=== PATIENT | female | born 1945 | race Caucasian/White ===

== ENCOUNTER 2017-07-29 17:54 | Emergency (ER) | payer MEDICARE, BC ==
[2017-07-29 17:54] VITALS: BP 108/45
--- NOTE | 2017-07-29 17:56 | ED.ADGEN ---
Adult General Chief Complaint Chief Complaint .." I fell... and hurt my right wrist..." HPI HPI Patient is a 72 year old female who presents with above hx and complaints. Pt. had a slip and fall. Pt caught her self with out stretched arm. FOOSH type injury. Localized pain in wrist and base scaphoid. Pt. denies other injuries. Pt. Rt. hand dominate. Pt. follows with Dr. Cinthia Brown Review of Systems Review of Systems Constitutional: Denies fever or chills [] Eyes: Denies change in visual acuity, redness, or eye pain [] HENT: Denies nasal congestion or sore throat [] Respiratory: Denies cough or shortness of breath [] Cardiovascular: No additional information not addressed in HPI [] GI: Denies abdominal pain, nausea, vomiting, bloody stools or diarrhea [] : Denies dysuria or hematuria [] Musculoskeletal: Denies back pain or joint pain []Complaints of Rt wrist pain Integument: Denies rash or skin lesions [] Neurologic: Denies headache, focal weakness or sensory changes [] Endocrine: Denies polyuria or polydipsia [] Family History Family History Non contributory Current Medications Current Medications Current Medications Medications (Trade) Dose Ordered Sig/Norman Start Time Stop Time Status Last Admin Dose Admin Oxycodone/ Acetaminophen (Percocet 10/325) 1 tab 1X ONCE 07/29/17 18:30 07/29/17 18:31 DC 07/29/17 18:29 1 TAB See Nursing for home meds Allergies Allergies Allergies Coded Allergies Type Severity Reaction Last Updated Verified No Known Drug Allergies 07/29/17 No Physical Exam Physical Exam Constitutional: Well developed, well nourished,mid to moderated distress, non- toxic appearance. [] HENT: Normocephalic, atraumatic, bilateral external ears normal, oropharynx moist, no oral exudates, nose normal. [] Eyes: PERRLA, EOMI, conjunctiva normal, no discharge. [] Neck: Normal range of motion, no tenderness, supple, no stridor. [] Cardiovascular:Heart rate regular rhythm, no murmur [] Lungs & Thorax: Bilateral breath sounds clear to auscultation [] Abdomen: Bowel sounds normal, soft, no tenderness, no masses, no pulsatile masses. [] Skin: Warm, dry, no erythema, no rash. [] Back: No tenderness, no CVA tenderness. [] Extremities: No tenderness, no cyanosis, no clubbing, ROM intact, no edema. Except finding in Rt. wrist per HPI Neurologic: Alert and oriented X 3, normal motor function, normal sensory function, no focal deficits noted. [] Psychologic: Affect normal, judgement normal, mood normal. [] Current Patient Data Vital Signs Vital Signs Date Time Temp Pulse Resp B/P (MAP) Pulse Ox O2 Delivery O2 Flow Rate FiO2 07/29/17 17:54 97.9 64 18 99 Room Air EKG EKG [] Radiology/Procedures Radiology/Procedures My interpretation of Xray Rt wrist hand, DJD, questionable area scaphoid- chip [] Course & Med Decision Making Course & Med Decision Making Pertinent Labs and Imaging studies reviewed. (See chart for details) Distal neurovascular intact post splint. Take Tylenol and ibuprofen for pain. Ice, elevation, rest and wear splint. Consider repeat x-ray in 2 weeks evaluate for callus formation. May advanced to velcro splint if no finding so scaphoid callus or fx. Follow up with primary. [] Final Impression Final Impression 1. Right Wrist[]-sprain 2. Questionable Scaphoid injury- fx. 3. DJD Problems: Dragon Disclaimer Dragon Disclaimer This electronic medical record was generated, in whole or in part, using a voice recognition dictation system. VIVIENNE WILLAMS MD Jul 29, 2017 17:56
[2017-07-29] MEDS ORDERED: oxyCODONE/APAP 10/325 1 TAB TABLET PO ONE (18:30)
--- NOTE | 2017-07-30 09:08 | RAD ---
Right hand, 3 views, 07/29/2017: History: Fall, injury There is patchy bony demineralization. No fracture or dislocation is identified. There are minimal scattered degenerative changes. IMPRESSION: No acute bony abnormality is detected. Right wrist, 3 views, 07/29/2017: No fracture or dislocation is identified. There is mild soft tissue swelling.
== END 2017-07-29 19:25 | disposition home or self-care (01) ==
LOC: ER 17:54
DX: S63.501A Unspecified sprain of right wrist, initial encounter (principal); M19.031 Primary osteoarthritis, right wrist; W01.0XXA Fall on same level from slipping, tripping and stumbling without subsequent striking against object, initial encounter; Y93.89 Activity, other specified; Y99.8 Other external cause status; Y92.89 Other specified places as the place of occurrence of the external cause
CPT/HCPCS: 29125; 73110; 73130; 99284-25

== ENCOUNTER → 2020-01-15 | Outpatient (CLI) | payer MEDICARE, BC ==
--- NOTE | 2020-01-15 16:23 | RAD ---
Indication: Decreased estrogen level. Ovarian failure. Postmenopausal screening for osteoporosis. COMPARISON: August 31, 2011 performed at [facility]. Bone Density: -BMD: (g/cm2) - AP Spine Total (L1-L4).......... 0.885. - Total right Hip................. 0.761. Neck: 0.685 T-Score: - AP Spine Total (L1-L4)......... -2.5. - Total right Hip................. -1.6. Neck: -2.0 Z-Score: - AP Spine Total (L1-L4).......... -0.6. - Total right Hip................. 0.2. World Health Organization criteria for BMD interpretation classify patients as Normal (T-score at or above -1.0), Osteopenic (T-score between -1.0 and -2.5), or Osteoporotic (T-score at or below -2.5). Impression: 1. AP Spine Total L1-L4--- osteoporosis. No change from previous. 2. Total right Hip--- osteopenia. There has been a decrease in the BMD of approximately 4% since the previous study. Neck: Osteopenia. Electronically signed by: Barrett Oliver MD (01/15/2020 4:20 PM) [facility] [place]
== END | disposition home or self-care (01) ==
LOC: DXRAD 11:36
PROVIDERS: ATTEND Internal Medicine
DX: M81.0 Age-related osteoporosis without current pathological fracture (principal); M85.88 Other specified disorders of bone density and structure, other site; E28.39 Other primary ovarian failure; Z78.0 Asymptomatic menopausal state
CPT/HCPCS: 77080

== ENCOUNTER 2020-12-23 12:31 | Emergency (ER) | payer MEDICARE, BC ==
[~2020-12-23] VITALS: Ht 157.5 cm; Wt 63.0 kg
[2020-12-23] MEDS ORDERED: HYDROcodone/APAP 5/325MG 1 TAB TABLET PO ONE (13:15)
--- NOTE | 2020-12-23 13:27 | EKG ---
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
--- NOTE | 2020-12-23 13:33 | PHYS DOC ---
Past History Past Medical History: High Cholesterol, Hypertension, Migraines Past Surgical History: Other Additional Past Surgical Histo: breast biopsy Alcohol Use: None Drug Use: None General Adult EDM: Chief Complaint: MECHANICAL FALL HPI: HPI: Patient is a 75-year-old female who presents with shortness of breath and right- sided flank, hip, pelvis, lower abdominal pain. Patient states that last night she was in her kitchen, she turned around and slipped on the floor and fell onto a flower pot. She states that she broke with a pop when she fell on it. Dahiana ent has bruising to her right flank and states this morning she started having pain in between her shoulder blades. She states that she was exposed to Covid positive person on , patient does report a cough. Pain is worse with coughing. Patient reports taking hydrocodone this morning at 10 AM with little relief of pain. Patient is able to ambulate on her own. Patient denies fever. Review of Systems: Review of Systems: Constitutional: Denies fever or chills Eyes: Denies change in visual acuity HENT: Denies nasal congestion or sore throat Respiratory: Reports cough and shortness of breath Cardiovascular: Denies chest pain or edema GI: Reports lower abdominal pain. Denies nausea, vomiting, bloody stools or d iarrhea : Denies dysuria Musculoskeletal: Reports right-sided flank pain, right hip pain Integument: Reports bruising to right flank Neurologic: Denies headache, focal weakness or sensory changes Endocrine: Denies polyuria or polydipsia Lymphatic: Denies swollen glands Psychiatric: Denies depression or anxiety Current Medications: Current Meds: Current Medications Medications (Trade) Dose Ordered Sig/Norman Start Time Stop Time Status Last Admin Dose Admin Acetaminophen/ Hydrocodone Bitart (Lortab 5/325) 1 tab 1X ONCE 12/23/20 13:15 12/23/20 13:16 UNV Allergies: Allergies: Allergies Coded Allergies Type Severity Reaction Last Updated Verified No Known Drug Allergies 12/23/20 No Physical Exam: PE: Constitutional: Well developed, well nourished, no acute distress, non-toxic appearance. [] HENT: Normocephalic, atraumatic, bilateral external ears normal, oropharynx moist, no oral exudates, nose normal. [] Eyes: PERRLA, EOMI, conjunctiva normal, no discharge. [] Neck: Normal range of motion, no tenderness, supple, no stridor. [] Cardiovascular:Heart rate regular rhythm, no murmur [] Lungs & Thorax: Bilateral breath sounds clear to auscultation [] Abdomen: Bowel sounds normal, soft, no tenderness, no masses, no pulsatile masses. [] Skin: Warm, dry, bruising to right flank Back: Right flank tenderness and bruising Extremities: No tenderness, no cyanosis, no clubbing, ROM intact, no edema. [] Neurologic: Alert and oriented X 3, normal motor function, normal sensory function, no focal deficits noted. [] Psychologic: Affect normal, judgement normal, mood normal. [] Current Patient Data: Vital Signs: Vital Signs Date Time Temp Pulse Resp B/P (MAP) Pulse Ox O2 Delivery O2 Flow Rate FiO2 12/23/20 12:45 97.9 64 18 145/68 (93) 64 EKG: EKG: [] Radiology/Procedures: Radiology/Procedures: []CT CHEST_ABDOMEN_ AND PELVIS WITHOUT CONTRAST INDICATION: FALL RIGHT RIB, RIGHT HIP AND ABDOMEN PAIN COMPARISON: None. TECHNIQUE: Multiple contiguous axial images were obtained throughout the chest, abdomen, and pelvis without the use of IV contrast. Axial images were reformatted into coronal and sagittal planes. One or more of the following dose reduction techniques were utilized: Automated exposure control (AEC), Adjustment of mA and/or kV according to patient size, Use of iterative reconstruction technique such as ASiR, CT scan done according to ALARA and image gently/image wisely. FINDINGS: Chest Findings: The thyroid is symmetric. There is no axillary, mediastinal, or hilar adenopathy, although evaluation of the vishnu is limited without IV contrast. The thoracic aorta diameter is normal. The cardiac size is normal. Coronary artery atherosclerotic disease. There is no pericardial effusion. The central airways are patent. Lungs are clear. No pleural abnormality. Abdomen findings: Evaluation of solid abdominal viscera is limited without the use of IV contrast. Hepatic cysts. The liver, gallbladder, spleen, and pancreas otherwise unremarkable. Right adrenal ovoid hyperdensity (60 Hounsfield units) measuring 1.8 x 1.2 cm with periadrenal stranding. Nonobstructive left renal calculi. No hydronephrosis There is no significant mesenteric or retroperitoneal adenopathy identified, though evaluation is limited without intravenous contrast. There is no evidence of free intraperitoneal fluid or pneumoperitoneum. Visualized portions of the bowel are grossly unremarkable. Pelvis findings: Urinary bladder is decompressed. Uterus is present. There is no significant pelvic ascites. No significant iliac or inguinal adenopathy is identified. No acute osseous abnormality. Degenerative changes spine. IMPRESSION: 1. 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 Recommend 2-3 month follow-up adrenal protocol CT to ensure resolution and to exclude underlying neoplasm. 2. Nonobstructive left renal calculi. Electronically signed by: Polo Zamora MD (12/23/2020 2:12 PM) [facility] Heart Score: Risk Factors: Risk Factors: DM, Current or recent (<one month) smoker, HTN, HLP, family history of CAD, obesity. Risk Scores: Score 0 - 3: 2.5% MACE over next 6 weeks - Discharge Home Score 4 - 6: 20.3% MACE over next 6 weeks - Admit for Clinical Observation Score 7 - 10: 72.7% MACE over next 6 weeks - Early Invasive Strategies Course & Med Decision Making: Course & Med Decision Making Pertinent Labs and Imaging studies reviewed. (See chart for details) [Patient is a 75-year-old female who presents with shortness of breath and right-sided flank, hip, pelvis, lower abdominal pain. Patient states that last night she was in her kitchen, she turned around and slipped on the floor and fell onto a flower pot. She states that she broke with a pop when she fell on it. Patient has bruising to her right flank and states this morning she started having pain in between her shoulder blades. She states that she was exposed to Covid positive person on , patient does report a cough. Pain is worse with coughing. Patient reports taking hydrocodone this morning at 10 AM with little relief of pain. Patient is able to ambulate on her own. Patient denies fever.] Physical assessment patient had bruising to her right flank, right hip pain and lower abdominal and pelvis pain. Patient also reports some pain in between her shoulder blades and worse with deep breath. Patient reports the pain between her shoulder blades started today. Hip x-ray, CT abdomen and pelvis ordered to rule out fracture. UA ordered to rule out blood in urine. Patient does have guarding to lower abdomen on palpitation. The liver, gallbladder, spleen, and pancreas unremarkable on CT. There is no evidence of free intraperitoneal fluid or pneumoperitoneum. 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 Recommend 2-3 month follow-up adrenal protocol CT to ensure resolution and to exclude underlying neoplasm.Nonobstructive left renal calculi. UA is positive for WBC, nitrates, blood. Treating patient for UTI with Keflex. One dose given in the ED. Patient given instructions to take ibuprofen and tylenol at home for pain, ice to area of discomfort. Dragon Disclaimer: [employer] Disclaimer: This electronic medical record was generated, in whole or in part, using a voice recognition dictation system. Departure Departure: Impression: Primary Impression: Rib pain on right side Additional Impression: UTI (urinary tract infection) Qualified Codes: N30.01 - Acute cystitis with hematuria Disposition: [place] HOME SELF CARE/HOMELESS Condition: STABLE Referrals: OSCAR MURPHY MD (PCP) Patient Instructions: Rib Contusion Additional Instructions: Emergency room today after a fall last night. We did a CT of your abdomen, pelvis, hip and right flank. The CAT scan was negative for any fractures or acute abnormalities. Your urine was positive for infection and will be treating you with antibiotics for a UTI. Please increase your fluids. You may take Tylenol and ibuprofen at home for pain. You also can use ice to the area to help with discomfort. Please return to the emergency room with worsening symptoms or concerns. Otherwise you may follow-up with your PCP for further symptom control. EMERGENCY DEPARTMENT GENERAL DISCHARGE INSTRUCTIONS Thank you for coming to [facility] (ED) today and trusting us with you care. We trust that you had a positivie experience in our Emergency Department. If you wish to speak to the department management, you may call the director at [phone]. YOUR FOLLOW UP INSTRUCTIONS ARE FOLLOWS: 1. Do you have a private Doctor? If you do not have a private doctor, please ask for a resource list of physicians or clinics that may be able to assist you with follow up care. 2. The Emergency Physician has interpreted your x-rays. The X-Ray specialist will also review them. If there is a change in the findings, you will be notified in 48 hours when at all possible. 3. A lab test or culture has been done, your results will be reviewed and you will be notified if you need a change in treatment. ADDITIONAL INSTRUCTIONS AND INFORMATION: 1. Your care today has been supervised by a physician who is specially trained in emergency care. Many problems require more than one evaluation for a complete diagnosis and treatment. We recommend that you schedule your follow up appointment as recommended to ensure complete treatment of you illness or injury. If you are unable to obtain follow up care and continue to have a problem, or if your condition worsens, we recommend that you return to the ED. 2. We are not able to safely determine your condition over the phone nor are we able to give sound medical advice over the phone. For these safety reasons, if you call for medical advice we will ask you to come to the ED for further evaluation. 3. If you have any questions regarding these discharge instructions please call the ED at [phone]. SAFETY INFORMATION: In the interest of safety, wellness, and injury prevention; we encourage you to wear your sealbelt, if you smoke; quite smoking, and we encourage family to use a protective helmet for bicycling and other sporting events that present an increased risk for head injury. IF YOUR SYMPTOMS WORSEN OR NEW SYMPTOMS DEVELOP, OR YOU HAVE CONCERNS ABOUT YOUR CONDITION; OR IF YOUR CONDITION WORSENS WHILE YOU ARE WAITING FOR YOUR FOLLOW UP APPOINTMENT; EITHER CONTACT YOUR PRIMARY CARE DOCTOR, THE PHYSICIAN WHOSE NAME AND NUMBER YOU WERE GIVEN, OR RETURN TO THE ED IMMEDIATELY. Scripts Hydrocodone Bit/Acetaminophen (HYDROCODONE-APAP 5-325 ) 1 Each Tablet 0.5-1 TAB PO PRN Q6HRS PRN for PAIN for 3 Days, #12 TAB 0 Refills Prov: ADVIS RIVAS APRN 12/23/20 Cephalexin (KEFLEX) 750 Mg Capsule 500 MG PO Q12HR for UTI for 7 Days, #13 CAP Prov: DAVIS RIVAS APRN 12/23/20 DAVIS RIVAS APRN Dec 23, 2020 13:33
--- NOTE | 2020-12-23 14:15 | RAD ---
CT CHEST_ABDOMEN_ AND PELVIS WITHOUT CONTRAST INDICATION: FALL RIGHT RIB, RIGHT HIP AND ABDOMEN PAIN COMPARISON: None. TECHNIQUE: Multiple contiguous axial images were obtained throughout the chest, abdomen, and pelvis without the use of IV contrast. Axial images were reformatted into coronal and sagittal planes. One or more of th e following dose reduction techniques were utilized: Automated exposure control (AEC), Adjustment of mA and/or kV according to patient size, Use of iterative reconstruction technique such as ASiR, CT sc an done according to ALARA and image gently/image wisely. FINDINGS: Chest Findings: The thyroid is symmetric. There is no axillary, mediastinal, or hilar adenopathy, although evaluatio n of the vishnu is limited without IV contrast. The thoracic aorta diameter is normal. The cardiac size is normal. Coronary artery atherosclerotic di sease. There is no pericardial effusion. The central airways are patent. Lungs are clear. No pleural abnormality. Abdomen findings: Evaluation of solid abdominal viscera is limited without the use of IV contrast. Hepatic cysts. The l iver, gallbladder, spleen, and pancreas otherwise unremarkable. Right adrenal ovoid hyperdensity (60 Hounsfield units) measuring 1.8 x 1.2 cm with periadrenal stranding. Nonobstructive left renal calcul i. No hydronephrosis There is no significant mesenteric or retroperitoneal adenopathy identified, th ough evaluation is limited without intravenous contrast. There is no evidence of free intraperitonea l fluid or pneumoperitoneum. Visualized portions of the bowel are grossly unremarkable. Pelvis findings: Urinary bladder is decompressed. Uterus is present. There is no significant pelvic ascites. No sign ificant iliac or inguinal adenopathy is identified. No acute osseous abnormality. Degenerative changes spine. IMPRESSION: 1. 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 Recommend 2-3 month follow-up adrenal protocol CT to ensure resolution and to ex clude underlying neoplasm. 2. Nonobstructive left renal calculi. Electronically signed by: Polo Zamora MD (12/23/2020 2:12 PM) [facility]
[2020-12-23 14:24] LABS: BACTERIA,URINE MANY /HPF (0-FEW); BILIRUBIN,URINE NEG (NEG); CLARITY,URINE CLEAR; COLOR,URINE YELLOW; GLUCOSE,URINE NEG (NEG); NITRITE,URINE POS (NEG); SQUAMOUS EPITHELIAL CELL,UR FEW /LPF; UROBILINOGEN,URINE 0.2 mg/dL (0.2 mg/dL); WBC,URINE 20-40 /HPF (0-4)
[2020-12-23] MEDS ORDERED: CEPHALEXIN 250 MG CAPSULE PO ONE (15:00)
[2020-12-23] MEDS ORDERED: CEPH750C9 PO (15:04)
[2020-12-23] MEDS ORDERED: HYDR-2155 PO (15:10)
[2020-12-23 15:45] VITALS: BP 130/78
== END 2020-12-23 15:40 | disposition home or self-care (01) ==
LOC: ER 12:31
DX: S30.1XXA Contusion of abdominal wall, initial encounter (principal); N30.01 Acute cystitis with hematuria; R07.81 Pleurodynia; E78.00 Pure hypercholesterolemia, unspecified; I10 Essential (primary) hypertension; G43.909 Migraine, unspecified, not intractable, without status migrainosus; W01.0XXA Fall on same level from slipping, tripping and stumbling without subsequent striking against object, initial encounter; Y93.89 Activity, other specified; Y92.89 Other specified places as the place of occurrence of the external cause; Y99.8 Other external cause status
CPT/HCPCS: 71250; 74176; 81001; 87086; 93005; 99285